=== PATIENT | male | born 1955 | race Caucasian/White ===

== ENCOUNTER 2025-06-18 07:43 | Outpatient (CLI) | payer OTHER, SELFPAY ==
--- NOTE | 2025-06-18 09:19 | P.ANES_ITS ---
Anesthesia Charges Start Date/Time Anesthesia Start Date: 06/18/25 Anesthesia Start Time: 08:33 Stop Date/Time Anesthesia Stop Date: 06/18/25 Anesthesia Stop Time: 09:13 Coding CPT Codes CPT Codes: ANES UPR LWR GI NDSC PX - 51462 ([id number]) P3 - PATIENT W/SEVERE SYS DISEASE, QK - CARPET RENOVATOR 2-4 CNCRNT ANES PROC, QX - SHELL REPRINT OPERATOR SVC W/ MD MED DIRECTION
--- NOTE | 2025-06-18 09:19 | W.ANESCHARGE ---
Anesthesia Charges Start Date/Time Anesthesia Start Date: 06/18/25 Anesthesia Start Time: 08:33 Stop Date/Time Anesthesia Stop Date: 06/18/25 Anesthesia Stop Time: 09:13 Coding CPT Codes CPT Codes: ANES UPR LWR GI NDSC PX - 22446 ([id number]) P3 - PATIENT W/SEVERE SYS DISEASE, QK - HEAD SOFT SUGAR OPERATOR 2-4 CNCRNT ANES PROC, QX - MARINE ELECTRICIAN SVC W/ MD MED DIRECTION
--- NOTE | 2025-06-18 09:41 | P.ANES_ITS ---
Anesthesia Charges Start Date/Time Anesthesia Start Date: 06/18/25 Anesthesia Start Time: 08:33 Stop Date/Time Anesthesia Stop Date: 06/18/25 Anesthesia Stop Time: 09:13 Coding CPT Codes CPT Codes: ANES UPR LWR GI NDSC PX - 60483 ([id number]) QK - DIRECTOR OF RESTAURANT OPERATIONS 2-4 CNCRNT ANES PROC, QX - MARKING DEVICES ASSEMBLER SVC W/ MED DIRECTION, P3 - PATIENT W/SEVERE SYS DISEASE
--- NOTE | 2025-06-18 09:41 | W.ANESCHARGE ---
Anesthesia Charges Start Date/Time Anesthesia Start Date: 06/18/25 Anesthesia Start Time: 08:33 Stop Date/Time Anesthesia Stop Date: 06/18/25 Anesthesia Stop Time: 09:13 Coding CPT Codes CPT Codes: ANES UPR LWR GI NDSC PX - 60263 ([id number]) QK - DIRECTOR OF REGIONAL SALES 2-4 CNCRNT ANES PROC, QX - AGRICULTURE SPECIALIST SVC W/ MED DIRECTION, P3 - PATIENT W/SEVERE SYS DISEASE
== END 2025-06-18 07:44 | disposition home or self-care (01) ==
LOC: OP CLINIC 07:46
PROVIDERS: PCP Family Medicine; Visit Provider Internal Medicine Gastroenterology
DX: D50.9 Iron deficiency anemia, unspecified (principal); I85.00 Esophageal varices without bleeding; K76.6 Portal hypertension; K31.89 Other diseases of stomach and duodenum; K64.8 Other hemorrhoids; Z85.038 Personal history of other malignant neoplasm of large intestine; Z98.0 Intestinal bypass and anastomosis status
CPT/HCPCS: 00813; 43235; 45378; J2704; J3490